=== PATIENT | female | born 2005 | race Caucasian/White ===

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

== ENCOUNTER → 2024-03-15 | Outpatient (CLI) | payer MEDICAID, SELFPAY ==
[2024-03-15 10:44] LABS: Absolute Neutrophil Count 4.3 X10^3/uL (2.0-7.7); Basophil# 0.06 X10^3/uL; Basophil% 0.6 % (0-1); Eosinophils% 2.1 % (0-5); Hematocrit 46.4 % (37-47); Hemoglobin 15.5 g/dL (12.0-15.0); Lymphocyte % 45.1 % (19-41); Mean Corp Hgb Conc 33.4 g/dL (32-36); Mean Corpuscular Hgb 29.3 pg (27.0-32.0); Mean Corpuscular Volume 87.7 fL (81-99); Monocyte# 0.69 X10^3/uL; Monocyte% 7.2 % (0-10); NRBC Flagged by Analyzer 0 % (0-5); Neutrophil # 4.26 X10^3/uL (2.7-7.7); Neutrophil % 44.7 % (47-70); Platelet Count 430 K/mm3 (150-450); RBC Distribution Width CV 12.2 % (11.6-14.6); RBC Distribution Width SD 39.1 fl (35.1-43.9); Red Blood Count 5.29 M/mm3 (4.2-5.4); White Blood Count 9.5 K/mm3 (4.4-11.0)
[2024-03-15 10:58] LABS: Internal QC Validated? YES +Cl - CLEAR BKGD
[2024-03-15 10:59] LABS: Pregnancy, Serum, hCG Quali. NEGATIVE Negative
[2024-03-15 11:07] LABS: ALB/GLOB Ratio 1.1 RATIO (0.9-2.4); AST(SGOT) 15 U/L (15-37); Alanine Aminotransfer ALT/SGPT 24 U/L (13-56); Albumin, Serum 4.1 g/dL (3.2-5.0); Alkaline Phosphatase 113 U/L (45-117); Anion Gap 5 (5-15); BUN 11 mg/dL (7-18); BUN/Creat Ratio 13.8 RATIO (10-20); Calcium,Total 9.5 mg/dL (8.5-10.1); Chloride 106 mmol/L (98-107); EST Glomerular Filtration Rate 98 mL/min (>60); Est Glom Filt Rate - Afr Amer 118 mL/min (>60); Globulin 3.8 g/dL (2.2-4.2); Glucose 85 mg/dL (74-106); Potassium 3.8 mmol/L (3.5-5.1); Protein, Total 7.9 g/dL (6.4-8.2); Sodium Level 140 mmol/L (136-145)
--- NOTE | 2024-03-16 16:15 | PCM.TILTTABL ---
Staff Staff: Caitie Moyer and Jackelyn Coburn Summary Pre Test Resting HR: 77 Pre Test Resting BP: 132/90 Minimum Test HR: 77 Maximum Test HR: 155 Minimum Test BP: 115/79 Maximum Test BP: 134/104 Physician Tilt Table Report Patient's Physicians Primary Care Physician: Carlos Manuel Jeong Indications/Diagnosis: Tachycardia Procedure Comments: Patient was brought into the lab in the postabsorptive nonsedated state. Initial EKG was obtained which demonstrated sinus rhythm with a heart rate of approximately 80 bpm and blood pressure 120/77 mmHg. The patient was then positioned in the 70 degree head at right tilt position and continuous EKG monitoring was performed. Patient started complaining of some dizziness with no significant change in heart rate and/or blood pressure. After approximately 20 minutes the peak heart rate was 120 bpm. The patient was then administered 0.4 mg of circular nitroglycerin after being put in the recumbent position. Patient was then put back in the 70 degree head upright tilt position and continuous EKG monitoring and blood pressure was monitored. No significant changes were noted. Summary: Negative head upright tilt table test.
[2024-03-16 16:20] VITALS: BP 115/79; BP 132/90; BP 134/104
== END | disposition home or self-care (01) ==
LOC: CVS 09:58
PROVIDERS: PCP Family Medicine; Referring Provider Internal Medicine Cardiovascular Disease; Visit Provider Internal Medicine Cardiovascular Disease
DX: R55 Syncope and collapse (principal); R00.2 Palpitations; R00.0 Tachycardia, unspecified
CPT/HCPCS: 36415; 80053; 84703; 85025; 93660; A4216

== ENCOUNTER 2024-11-27 20:22 | Emergency (ER) | payer MEDICAID, SELFPAY ==
[2024-11-27 20:23] VITALS: BP 127/88; PULSE 90; RESP 16; TEMP 36.2; O2SAT 98
[2024-11-27 20:30] VITALS: BMI 46.3
[2024-11-27 20:36] VITALS: BP 132/81; BP 133/79; BP 135/82; PULSE 105; PULSE 86; PULSE 95
--- NOTE | 2024-11-27 20:40 | ED.RN ---
Pt reports visual changes and dizziness with positional movements but no truncal ataxia noted. Pt was balanced while standing and visual changes resolved before completion of the assessment.
--- NOTE | 2024-11-27 21:25 | EKG12_ITS ---
Test Reason : DYSRHYTHMIA Blood Pressure : */* mmHG Vent. Rate : 80 BPM Atrial Rate : 80 BPM P-R Int : 162 ms QRS Dur : 86 ms QT Int : 372 ms P-R-T Axes : 28 26 28 degrees QTcB Int : 429 ms Normal sinus rhythm Normal ECG Confirmed by ARMANDO NORTON, ELAINE ([id number]), videotape editor JES BOYD ([id number]) on 11/28/2024 9:40:39 AM Referred By: Confirmed By: ELAINE ROBERTS MD
[2024-11-27 21:30] VITALS: BP 127/75; PULSE 80; RESP 18; O2SAT 100
--- NOTE | 2024-11-27 21:37 | EX.ED.DYSGE1 ---
HPI History of Present Illness Chief Complaint: Dizziness Informant: patient Narrative Narrative: Patient is a 19 year old female with history of POTS, Tushar-Danlos syndrome (hypermobile type) and bipolar disorder presented for evaluation of lightheadedness that she describes as a flare of her POTS. Patient states that she has a similar flareup every November when she goes back to school. She is a college [place] student. She notes she felt fatigued yesterday and tried to power through. Today she was feeling worse. As the day went on she got worse and at work she started to have feel lightheaded. She states in her mind she has trouble focusing in her head. She states she has blurry vision when she moves positions (goes up or down). She had nausea and 1 episode of vomiting. She states she feels very fatigued and has brain fog. She is also having increased joint pain. She states that she is on metoprolol at baseline. She tries to drink Electrolyte water and intermittently wears compression socks but is not wearing them today because sometimes they bother her legs. She denies any current chest pain but does relate she did have a little bit of chest tightness. She denies feeling short of breath. She denies any new swelling of her legs. Denies any history of DVT or PE. States she is not currently on her menstrual cycle. Denies any fever or chills. No other complaints at this time. [facility] Medical History POTS (postural orthostatic tachycardia syndrome) EDS (Tushar-Danlos syndrome) Tachycardia Chest pain Dyspnea Palpitations Acute hypokalemia Bipolar disorder Home Medications ?Medication ?Instructions ?Recorded ?Last Taken ?Type hydroxyzine HCl 25 mg tablet 25 mg PO TID PRN anxiety 01/18/24 Unknown History lamotrigine 100 mg tablet 100 mg PO QDAY 01/18/24 Unknown History metoprolol succinate 25 mg 25 mg PO DAILY 11/27/24 Unknown History tablet,extended release 24 hr Allergy/AdvReac Type Severity Reaction Status Date / Time acetaminophen (From [facility]) Allergy seizure Verified 11/27/24 20:26 pamabrom (From [facility]) Allergy seizure Verified 11/27/24 20:26 Family History Grandfather Afib Surgical History Hx of bilateral mastectomy Social History Smoking Status: Never smoker ROS ROS ED Constitutional Constitutional ED: Reports other Details: Fatigue. Lightheaded ; Denies chills or fever(s) Eyes Eyes: Reports blurry vision ENT ENT ED: Denies sore throat Cardiovascular Cardiovascular: Reports chest pain and palpitations Respiratory/Chest Respiratory/Chest: Denies cough Gastrointestinal Gastrointestinal: Reports nausea and vomiting; Denies abdominal pain or diarrhea Genitourinary Genitourinary ED: Denies dysuria or urinary frequency Musculoskeletal Musculoskeletal: Reports arthralgias and myalgias Integumentary Denies rash Neurologic Neurologic: Reports weakness and other; Denies paresthesias Psychiatric Psychiatric: Reports anxiety EXAM Physical Exam Const Vital Signs: 11/27/24 20:23 11/27/24 20:36 11/27/24 21:30 Temperature 97.2 F L Temperature Source Temporal Pulse Rate 90 80 Pulse Rate [Lying] 86 Pulse Rate [Sitting (for 1 minute prior to obtaining)] 95 Pulse Rate [Standing (for 1 minute prior to obtaining)] 105 H Respiratory Rate 16 18 Blood Pressure 127/88 H 127/75 H Blood Pressure [Lying] 135/82 H Blood Pressure [Sitting (for 1 minute prior to obtaining)] 132/81 H Blood Pressure [Standing (for 1 minute prior to obtaining)] 133/79 H Blood Pressure Mean 101 92 Blood Pressure Mean [Lying] 99 Blood Pressure Mean [Sitting (for 1 minute prior to obtaining)] 98 Blood Pressure Mean [Standing (for 1 minute prior to obtaining)] 97 Pulse Ox 98 100 Oxygen Delivery Method Room Air Room Air 11/28/24 00:00 Temperature Temperature Source Pulse Rate 86 Pulse Rate [Lying] Pulse Rate [Sitting (for 1 minute prior to obtaining)] Pulse Rate [Standing (for 1 minute prior to obtaining)] Respiratory Rate 18 Blood Pressure 135/67 H Blood Pressure [Lying] Blood Pressure [Sitting (for 1 minute prior to obtaining)] Blood Pressure [Standing (for 1 minute prior to obtaining)] Blood Pressure Mean 89 Blood Pressure Mean [Lying] Blood Pressure Mean [Sitting (for 1 minute prior to obtaining)] Blood Pressure Mean [Standing (for 1 minute prior to obtaining)] Pulse Ox 98 Oxygen Delivery Method Room Air Positive well nourished and well developed General Appearance ED: well developed and NAD HEENT Reports dry mucous membranes Mouth ED: Yes dry mucous membranes Mouth: dry mucous membranes Eyes PERRL Neck no lymphadenopathy, supple and no JVD Chest Wall inspection of chest normal and palpation of chest normal Resp normal respiratory effort and clear to auscultation bilaterally Cardio regular rate and regular rhythm GI normal to inspection, nondistended, normoactive bowel sounds and non-tender Extremity normal to inspection General Extremety ED: Negative for edema General Extremity: Negative for edema Neuro oriented x3 and CN's II-XII intact bilaterally Sensorium / Orientation: alert Motor Exam: Negative for general weakness Psych mental status grossly normal Skin no rashes or lesions noted MDM MDM MDM Narrative Medical decision making narrative: Patient is evaluated for worsening lightheadedness and fatigue. Feels like a exacerbation of her POTS. She is orthostatic negative with blood pressure but dizzy during this. Differential includes dehydration, electrolyte derangement, FERNANDO and infection as well as arrhythmia. Low suspicion for ACS. EKG does not show any acute ischemic changes I do not think she requires troponins or further cardiac workup. Vital signs are stable the emergency room. CBC shows a mild leukocytosis of 13.2 which is nonspecific. There is no left shift. CMP shows a mildly low bicarb of 19.9 but otherwise normal. Urine is negative. Urinalysis does show 50 ketones but otherwise consistent with contamination with 10-25 squamous epithelial cells and 0-5 white blood cells. She does have some blood but she is currently on her menstrual cycle. Patient admitted to the [facility] in the emergency room. Is given a small amount of IV fluids but then her IV started to bother her. States that she feels comfortable going home and is feeling better. Declines any nausea medication or prescriptions. Will follow-up with her primary care doctor. And at [facility]. Given return precautions. Discharged home in stable condition Lab Data Attestation: I reviewed the patient's lab results. Labs: Laboratory Results - last 24 hr 11/27/24 11/27/24 22:00 23:45 WBC 13.2 H RBC 4.73 Hgb 14.0 Hct 41.2 MCV 87.1 MCH 29.6 MCHC 34.0 RDW Std Deviation 37.8 RDW Coeff of Crystal 11.9 Plt Count 395 MPV 9.5 Immature Gran % (Auto) 0.400 Neut % (Auto) 52.0 Lymph % (Auto) 38.8 [place] % (Auto) 4.9 Eos % (Auto) 3.4 Baso % (Auto) 0.5 Absolute Neuts (auto) 6.9 Absolute Lymphs (auto) 5.11 H Nucleated RBC % 0 Sodium 138 Potassium 4.2 Chloride 103 Carbon Dioxide 19.9 L Anion Gap 15 BUN 18 Creatinine 0.65 L Estim Creat Clear Calc 178.41 Est GFR (MDRD) Non-Af 129 BUN/Creatinine Ratio 27.5 H Glucose 94 Calcium 9.6 Total Bilirubin < 0.15 AST 29 ALT 24 Alkaline Phosphatase 125 H Total Protein 7.6 Albumin 4.5 Globulin 3.1 Albumin/Globulin Ratio 1.4 Lipase 27 Serum , Qual NEGATIVE Urine Color Yellow Urine Clarity Clear Urine pH 6.0 Ur Specific [place] 1.020 Urine Protein 15 H Urine Glucose (UA) Normal Urine Ketones 50 H Urine Occult Blood 50 H Urine Nitrite Negative Urine Bilirubin Negative Urine Urobilinogen Normal Ur Leukocyte Esterase Negative Urine RBC 5-10 SEEN Urine WBC 0-5 SEEN Ur Squamous Epith Cells 10-25 SEEN Urine Bacteria 2+ Urine Mucus 2+ Rhythm Strip Rhythm Strip: Sinus Rhythm Rate: 80 Ectopy: None EKG Initial EKG: Attestation: I personally reviewed and interpreted this EKG as follows: Interpretation: Sinus Rhythm Comments: Normal sinus rhythm at a rate of 80 bpm Normal axis Normal intervals Normal ST segments Discharge Plan Triage Chief Complaint: Dizziness ED Provider: Margaret Patiño Dx/Rx/DC Orders Clinical Impression: Light-headed, Fatigue Instructions: ED Dizziness, Uncertain Cause Prescriptions: No Action lamotrigine 100 mg tablet 100 mg PO QDAY hydroxyzine HCl 25 mg tablet 25 mg PO TID PRN (Reason: anxiety) metoprolol succinate 25 mg tablet extended release 24 hr 25 mg PO DAILY Primary Care Provider: Carlos Manuel Jeong Referrals: Carlos Manuel Jeong MD [Primary Care Provider] - Activity Restrictions/Additional Instructions: Please continue to push fluids at home. You develop a fever or other infectious symptoms please return to the emergency room or call your family doctor. Print Language: Iraqi Disposition Disposition: Home, Self Care
[2024-11-27] MEDS: 0.9% Normal Saline (1000mL) 1,000 ML 1000 ML IV (22:01)
[2024-11-27 22:25] LABS: Hematocrit 41.2 % (37-47); Hemoglobin 14.0 g/dL (12.0-15.0); Immature Granulocytes Count 0.050 X10^3/uL (0.0-0.0); Mean Corp Hgb Conc 34.0 g/dL (32-36); Mean Corpuscular Volume 87.1 fL (81-99); Mean Platelet Vol. 9.5 fl (6.2-12.0); NRBC Flagged by Analyzer 0 % (0-5); POSITIVE COUNT YES; POSITIVE DIFFERENTIAL YES; Platelet Count 395 K/mm3 (150-450); RBC Distribution Width CV 11.9 % (11.6-14.6); RBC Distribution Width SD 37.8 fl (35.1-43.9); Red Blood Count 4.73 M/mm3 (4.2-5.4); White Blood Count 13.2 K/mm3 (4.4-11.0)
[2024-11-27 22:52] LABS: Internal QC Validated? YES +Cl - CLEAR BKGD; Pregnancy, Serum, hCG Quali. NEGATIVE Negative; Record Kit Lot#, Serum Preg. 962302
[2024-11-27 22:56] LABS: Lipase 27 U/L (13-75)
[2024-11-27 23:34] LABS: AST(SGOT) 29 U/L (<=31); Alanine Aminotransfer ALT/SGPT 24 U/L (<=34); Albumin, Serum 4.5 g/dL (3.5-5.0); Alkaline Phosphatase 125 U/L (35-104); Anion Gap 15 (5-15); BUN 18 mg/dL (4-19); BUN/Creat Ratio 27.5 RATIO (10-20); Calcium,Total 9.6 mg/dL (7.6-11.0); Carbon Dioxide 19.9 mmol/L (21.0-32.0); Chloride 103 mmol/L (98-108); Estimated Creatinine Clearance 178.41 ml/min (50-250); Globulin 3.1 g/dL (2.2-4.2); Glucose 94 mg/dL (70-99); Potassium 4.2 mmol/L (3.3-5.1)
[2024-11-28] VITALS: BP 135/67; PULSE 86; RESP 18; O2SAT 98
[2024-11-28 00:36] LABS: Color, Urine Yellow (Yellow); Glucose, Dipstick Normal (Normal); Ketone-Dipstick 50 mg/dl (Negative); Leukocyte Esterase-Dipstick Negative /ul (Negative); Nitrite-Dipstick Negative (Negative); Occult Blood-Urine 50 /ul (Negative); Protein-Dipstick 15 mg/dl (Negative); Specific Gravity, Urine 1.020 (1.002-1.030); Urine Bilirubin Dipstick Negative (Negative)
[2024-11-28 00:58] LABS: Mucous, Urine 2+ /hpf (<or=2+); Red Blood Cells-Urine 5-10 SEEN /hpf (0-5); Squamous Epithelial Cells - UA 10-25 SEEN /hpf (5-10)
[2024-11-28 01:16] VITALS: BP 154/82; PULSE 88; RESP 18; TEMP 36.6; O2SAT 100
== END 2024-11-28 01:18 | disposition home or self-care (01) ==
PROVIDERS: Emergency Provider Emergency Medicine; PCP Family Medicine; Visit Provider Emergency Medicine
DX: R42 Dizziness and giddiness (principal); F31.9 Bipolar disorder, unspecified; G90.A Postural orthostatic tachycardia syndrome [POTS]; Q79.60 Ehlers-Danlos syndrome, unspecified; Z79.899 Other long term (current) drug therapy; R07.9 Chest pain, unspecified; R00.2 Palpitations; R53.83 Other fatigue
CPT/HCPCS: 80053; 81001; 83690; 84703; 85025; 93005; 96361; 96374; 99283; A4216; J2405

== ENCOUNTER 2024-12-19 12:44 | Emergency (ER) | payer MEDICAID, SELFPAY ==
[2024-12-19 12:44] VITALS: BP 138/91; PULSE 89; RESP 17; TEMP 35.9; O2SAT 100
[2024-12-19 15:29] VITALS: BP 121/65; PULSE 72; RESP 16; O2SAT 99; BMI 47.2
[2024-12-19 15:31] VITALS: BP 121/65; BP 128/69; BP 153/108; PULSE 72; PULSE 75; PULSE 96
--- NOTE | 2024-12-19 15:52 | EX.ED.DYSGE1 ---
HPI History of Present Illness Chief Complaint: Dizziness Detail of Chief Complaint: Dizziness Informant: patient Narrative Narrative: Patient presents with dizziness that started while in class today. She felt like she was nodding off and so she stood up to stretch and felt like everything was moving around and round. No prior history of vertigo. Denies recent illness. Denies significant headache. Gets occasional headache and occasional migraines. She describes some blurred vision. She is chest pain or abdominal pain. Denies neck pain. PFSH PFSH Medical History POTS (postural orthostatic tachycardia syndrome) EDS (Tushar-Danlos syndrome) Tachycardia Chest pain Dyspnea Palpitations Acute hypokalemia Bipolar disorder Home Medications ?Medication ?Instructions ?Recorded ?Last Taken ?Type hydroxyzine HCl 25 mg tablet 25 mg PO TID PRN anxiety 01/18/24 Unknown History lamotrigine 100 mg tablet 100 mg PO QDAY 01/18/24 Unknown History metoprolol succinate 25 mg 25 mg PO DAILY 11/27/24 Unknown History tablet,extended release 24 hr meclizine 25 mg tablet 25 mg PO TID PRN dizziness #20 tabs 12/19/24 Unknown Rx Allergy/AdvReac Type Severity Reaction Status Date / Time acetaminophen (From [facility]) Allergy seizure Verified 11/27/24 20:26 pamabrom (From [facility]) Allergy seizure Verified 11/27/24 20:26 Family History Grandfather Afib Surgical History Hx of bilateral mastectomy Social History Smoking Status: Never smoker ROS ROS ED Review of Systems ROS Unobtainable: other Constitutional Constitutional ED: Reports lethargy; Denies chills, fever(s), sweats or weight loss Eyes Eyes: Denies blurry vision, change in vision or diplopia ENT ENT ED: Denies rhinorrhea or sore throat Cardiovascular Cardiovascular: Denies chest pain, orthopnea or racing heartbeat Respiratory/Chest Respiratory/Chest: Denies cough, dyspnea, dyspnea on exertion, orthopnea or sputum Gastrointestinal Gastrointestinal: Denies abdominal pain, diarrhea, nausea or vomiting Genitourinary Genitourinary ED: Denies dysuria, hematuria or urinary frequency Musculoskeletal Musculoskeletal: Denies arthralgias, back pain, myalgias or neck pain Integumentary Denies abscess, Abrasions or rash Neurologic Neurologic: Reports other Details: Dizziness ; Denies headache(s) or weakness Psychiatric Psychiatric: Denies anxiety, depression or suicidal thoughts Endocrine Endocrinology: Denies polydipsia, polyphagia or polyuria Hematologic/Lymphatic Hematologic/Lymphatic: Denies easy bleeding, easy bruising or lymphadenopathy Allergic/Immunologic Allergic/Immunologic ED: Denies mouth swelling, tongue swelling or urticaria EXAM Physical Exam Const Vital Signs: 12/19/24 12:44 12/19/24 15:29 12/19/24 15:31 Temperature 96.6 F L Temperature Source Temporal Pulse Rate 89 72 Pulse Rate [Lying] 72 Pulse Rate [Sitting (for 1 minute prior to obtaining)] 75 Pulse Rate [Standing (for 1 minute prior to obtaining)] 96 Respiratory Rate 17 16 Blood Pressure 138/91 H 121/65 H Blood Pressure [Lying] 121/65 H Blood Pressure [Sitting (for 1 minute prior to obtaining)] 128/69 H Blood Pressure [Standing (for 1 minute prior to obtaining)] 153/108 H Blood Pressure Mean 106 83 Blood Pressure Mean [Lying] 83 Blood Pressure Mean [Sitting (for 1 minute prior to obtaining)] 88 Blood Pressure Mean [Standing (for 1 minute prior to obtaining)] 123 Pulse Ox 100 99 Oxygen Delivery Method Room Air Room Air Positive well nourished and well developed General Appearance ED: well developed and NAD HEENT Reports TM's clear and moist mucous membranes normocephalic and atraumatic; Negative for trauma or tenderness Tympanic Membrane ED: Yes TM's clear Eyes PERRL and EOMs intact bilaterally General Eye ED: Negative for pale conjunctiva or scleral icterus Neck no lymphadenopathy, supple and no JVD General: Negative for tenderness Chest Wall inspection of chest normal and palpation of chest normal Chest: Negative for tenderness Resp normal respiratory effort and clear to auscultation bilaterally Effort and Inspection: Negative for respiratory distress or pain with movement Auscultation: Negative for rhonchi, wheezes or diminished lung sounds Cardio regular rate, regular rhythm, S1 normal heart sound, S2 normal heart sound and no murmurs Peripheral Pulses: pulses 2+ throughout GI normal to inspection, nondistended, normoactive bowel sounds, soft to palpation, non-tender, non-distended and no masses Back/Spine no CVA tenderness and no thoracic nor lumbar tenderness Extremity normal to inspection General Extremety ED: Negative for edema General Extremity: Negative for edema Neuro oriented x3, CN's II-XII intact bilaterally, no sensory deficits noted and gait normal Neuro Narrative: Finger-nose and heel finch testing within normal limits, negative Romberg, negative for drift, fundi benign Hallpike maneuver performed there was no significant nystagmus noted. Hard to reproduce her symptoms Sensorium / Orientation: awake, alert, oriented to person, oriented to place and oriented to time Motor Exam: strength 5/5 throughout and strength abnormal Psych mental status grossly normal Skin no rashes or lesions noted and no wounds MDM MDM MDM Narrative Medical decision making narrative: Patient planes of dizziness and spinning sensation. No prior episodes. Clinically looks well. Neuroexam normal. Orthostatic vital signs were negative. Will obtain some basic labs and treat with Antivert. CBC with differential obtained showed a slightly elevated white count at 13.0 with hemoglobin 13.3 and platelet count of 390. Chemistries unremarkable. Patient was medicated with Antivert and felt improved after treatment. At this time we will discharge to home as I suspect possibly benign positional vertigo as the etiology of her symptoms. Lab Data Attestation: I reviewed the patient's lab results. Labs: Laboratory Results - last 24 hr 12/19/24 16:09 WBC 13.0 H RBC 4.56 Hgb 13.3 Hct 39.6 MCV 86.8 MCH 29.2 MCHC 33.6 RDW Std Deviation 39.8 RDW Coeff of [place] 12.6 Plt Count 390 MPV 8.6 Immature Gran % (Auto) 0.400 Neut % (Auto) 53.4 Lymph % (Auto) 32.2 [place] % (Auto) 8.4 Eos % (Auto) 5.1 H Baso % (Auto) 0.5 Absolute Neuts (auto) 7.0 Absolute Lymphs (auto) 4.20 Nucleated RBC % 0 Sodium 138 Potassium 4.2 Chloride 106 Carbon Dioxide 21.2 Anion Gap 10 BUN 13 Creatinine 0.65 L Estim Creat Clear Calc 180.24 Est GFR (MDRD) Non-Af 129 BUN/Creatinine Ratio 19.8 Glucose 85 Calcium 9.5 Discharge Plan Triage Chief Complaint: Dizziness ED Provider: Frankie Eastman Dx/Rx/DC Orders Clinical Impression: Dizziness Instructions: ED BPV Vertigo, ED Dizziness, Uncertain Cause Prescriptions: New meclizine 25 mg tablet 25 mg PO TID PRN (Reason: dizziness) Qty: 20 0RF No Action lamotrigine 100 mg tablet 100 mg PO QDAY hydroxyzine HCl 25 mg tablet 25 mg PO TID PRN (Reason: anxiety) metoprolol succinate 25 mg tablet extended release 24 hr 25 mg PO DAILY Primary Care Provider: Carlos Manuel Jeong Referrals: Carlos Manuel Jeong MD [Primary Care Provider] - 5-7 Days Print Language: Algerian Disposition Disposition: Home, Self Care
[2024-12-19 16:23] LABS: Hematocrit 39.6 % (37-47); Hemoglobin 13.3 g/dL (12.0-15.0); Immature Granulocytes Count 0.050 X10^3/uL (0.0-0.0); Mean Corp Hgb Conc 33.6 g/dL (32-36); Mean Corpuscular Volume 86.8 fL (81-99); Mean Platelet Vol. 8.6 fl (6.2-12.0); NRBC Flagged by Analyzer 0 % (0-5); Platelet Count 390 K/mm3 (150-450); RBC Distribution Width CV 12.6 % (11.6-14.6); RBC Distribution Width SD 39.8 fl (35.1-43.9); Red Blood Count 4.56 M/mm3 (4.2-5.4); White Blood Count 13.0 K/mm3 (4.4-11.0)
[2024-12-19 16:58] LABS: Anion Gap 10 (5-15); BUN 13 mg/dL (4-19); BUN/Creat Ratio 19.8 RATIO (10-20); Calcium,Total 9.5 mg/dL (7.6-11.0); Carbon Dioxide 21.2 mmol/L (21.0-32.0); Chloride 106 mmol/L (98-108); Estimated Creatinine Clearance 180.24 ml/min (50-250); Glucose 85 mg/dL (70-99); Potassium 4.2 mmol/L (3.3-5.1)
[2024-12-19 17:00] VITALS: BP 132/72; PULSE 84; RESP 16; O2SAT 97
[2024-12-19 17:22] VITALS: BP 113/74; PULSE 78; RESP 18; TEMP 36.6; O2SAT 100
== END 2024-12-19 17:23 | disposition home or self-care (01) ==
PROVIDERS: Emergency Provider Emergency Medicine; PCP Family Medicine; Visit Provider Emergency Medicine
DX: R42 Dizziness and giddiness (principal); Q79.60 Ehlers-Danlos syndrome, unspecified; Z90.13 Acquired absence of bilateral breasts and nipples
CPT/HCPCS: 80048; 85025; 99283

== ENCOUNTER 2025-01-02 16:07 | Emergency (ER) | payer MEDICAID, SELFPAY ==
[2025-01-02 16:08] VITALS: BP 131/90; PULSE 98; RESP 17; TEMP 36.1; O2SAT 96; BMI 46.0
--- NOTE | 2025-01-02 16:32 | RAD_ITS ---
EXAM: XR Right Knee Complete, 4 or More Views CLINICAL INDICATION: PAIN TECHNIQUE: Four or more views of the right knee. COMPARISON: No relevant prior studies available. FINDINGS: BONES/JOINTS: Unremarkable. No acute fracture. No dislocation. SOFT TISSUES: Unremarkable. RAD/Knee 4 or More Views IMPRESSION: No acute fracture. Reading Location: [id number]
--- NOTE | 2025-01-02 16:32 | RAD_ITS ---
EXAM: XR Right Tibia and Fibula, 2 Views CLINICAL INDICATION: PAIN TECHNIQUE: Frontal and lateral views of the right tibia and fibula. COMPARISON: No relevant prior studies available. FINDINGS: BONES/JOINTS: See below. SOFT TISSUES: Soft tissue swelling without acute fracture. No radiopaque foreign body. RAD/Tibia & Fibula 2 Views IMPRESSION: 1. Soft tissue swelling without acute fracture. 2. If symptoms persist, further evaluation with CT is recommended. Reading Location: [id number]
--- NOTE | 2025-01-02 17:29 | EDS_ITS ---
HPI History of Present Illness HPI Narrative: 19-year-old female complaining of right calf pain for approximately a week. Denies any fall injury or trauma does do something called [employer] dance where she does a lot activity with her legs. She thinks she injured her calf during that. No history of DVT or PE. No recent travel, surgery or immobilization. No chest pain or shortness of breath. Hurts more to walk on. Chief Complaint: Lower Extremity Injury Informant: patient Occured/Mechanism Mechanism/Context: Yes injury Onset/Context/Timing Onset: Days Context: Sudden Onset Timing: Continuous Quality of Pain: Dull and Aching Current Severity: Mild Maximum Severity: Mild Associated Symptoms Associated Symptoms: Negative for Parasthesia, Weakness or Loss of Funtion Narrative Narrative: 19-year-old female thinks she injured her right lower leg while dancing. Prior similar symptoms: No Recent Illness/Hospitalization: No PFSH PFSH Medical History POTS (postural orthostatic tachycardia syndrome) EDS (Tushar-Danlos syndrome) Tachycardia Chest pain Dyspnea Palpitations Acute hypokalemia Bipolar disorder Home Medications ?Medication ?Instructions ?Recorded ?Last Taken ?Type hydroxyzine HCl 25 mg tablet 25 mg PO TID PRN anxiety 01/18/24 Unknown History lamotrigine 100 mg tablet 100 mg PO QDAY 01/18/24 Unkn own History metoprolol succinate 25 mg 25 mg PO DAILY 11/27/24 Unk nown History tablet,extended release 24 hr meclizine 25 mg tablet 25 mg PO TID PRN dizziness # 20 tabs 12/19/24 Unknown Rx Allergy/AdvReac Type Severity Reaction Status Date / Time acetaminophen (From [facility]) Allergy seizure Verified 01/02/25 16:10 pamabrom (From [facility]) Allergy seizure Verified 01/02/25 16:10 Family History Grandfather Afib Surgical History Hx of bilateral mastectomy Social History Smoking Status: Never smoker ROS ROS ED ROS Narrative Denies recent illness. Constitutional Constitutional ED: Denies chills or fever(s) Eyes Eyes: Denies blurry vision ENT ENT ED: Denies ear pain Cardiovascular Cardiovascular: Denies chest pain Respiratory/Chest Respiratory/Chest: Denies cough or dyspnea Gastrointestinal Gastrointestinal: Denies abdominal pain Genitourinary Genitourinary ED: Denies dysuria or hematuria Musculoskeletal Musculoskeletal: Denies arthralgias or back pain Integumentary Denies abscess Neurologic Neurologic: Denies headache(s) Psychiatric Psychiatric: Denies anxiety or depression Endocrine Endocrinology: Denies polydipsia Hematologic/Lymphatic Hematologic/Lymphatic: Denies easy bleeding Allergic/Immunologic Allergic/Immunologic ED: Denies mouth swelling or tongue swelling EXAM Physical Exam Narrative Exam Narrative: Well-appearing 19-year-old female sitting upright in chair in the hallway. Vital signs are stable afebrile. H EENT exam pupils round reactive light. Moist mutes membranes. Neck nontender no lymphadenopathy. Back nontender. Lungs clear to auscultation bilaterally. Heart regular rhythm rate about 90 no murmur. Chest wall ribs nontender. Abdomen is soft nontender. Moving all 4 extremities. Normal strength. Normal range of motion. No edema no swelling. Mild right lateral calf tenderness. No cord. No edema. No swelling. No redness. Mildly tender. Full flexion extension of the right hip, knee and ankle. Normal DP pulse. Normal dorsi plantarflexion. There is no discoloration to the skin. There is no lymphangitic streaking. There is no inguinal lymphadenopathy. Normal in appearance. Normal strength and sensation. Const Vital Signs: 01/02/25 16:08 Temperature 97 F L Temperature Source Temporal Pulse Rate 98 Respiratory Rate 17 Blood Pressure 131/90 H Blood Pressure Mean 103 Pulse Ox 96 Oxygen Delivery Method Room Air Positive well developed; Negative for cachectic, contractures or unkempt General Appearance ED: well developed and NAD; Negative for unkempt, cachectic or contractures Nutritional Appearance: Negative for cachectic HEENT Reports moist mucous membranes normocephalic and atraumatic Eyes PERRL Neck full ROM and supple Chest Wall inspection of chest normal and palpation of chest normal Resp normal respiratory effort, no retractions and clear to auscultation bilaterally Cardio regular rate, regular rhythm, S1 normal heart sound, S2 normal heart sound and no murmurs GI non-tender Auscultation: normoactive bowel sounds Palpation: soft; Negative for tender, guarding or rebound tenderness present Back/Spine no CVA tenderness General Back: Negative for CVA tenderness Cervical Spine: Negative for cervical spine tenderness Thoracic Spine / Upper Back: Negative for thoracic spinal tenderness Lumbar Spine / Lower Back: Negative for lumbar spinal tenderness Extremity full ROM; Negative for normal to inspection Extremity Narrative: Mild tenderness right medial calf. No redness. No swelling. No signs of trauma. No soft tissue deficit. Normal flexion extension of the right hip, right knee and right foot. Normal DP pulse. Normal dorsi plantarflexion. Normal sensation to the foot. Normal strength. No cord. No edema. General Extremety ED: Negative for edema General Extremity: Negative for edema Neuro oriented x3 and CN's II-XII intact bilaterally Sensorium / Orientation: alert, oriented to person and oriented to place; Negative for orientation impaired Motor Exam: strength 5/5 throughout Psych mental status grossly normal Appearance: Negative for unkempt Skin no wounds Lesions: no lesions Rashes: no rashes Trauma: Negative for abrasion, laceration or puncture MDM MDM MDM Narrative Medical decision making narrative: 19-year-old female right calf strain from dancing. No signs of infection. No history or risk factor for DVT or PE. No cord no edema. X-rays were obtained in triage which showed no fracture or dislocation. This would be treated as a muscle strain. Ice. Anti-inflammatories rest if not improving return or follow-up. Patient's comfortable with the plan. Radiography Diagnostic Testing: Clinical Impression(s) from Imaging Studies Knee X-Ray 01/02/25 16:32 IMPRESSION: No acute fracture. Reading Location: [facility] Tibia/Fibula X-Ray 01/02/25 16:32 IMPRESSION: 1. Soft tissue swelling without acute fracture. 2. If symptoms persist, further evaluation with CT is recommended. Reading Location: [facility] Right knee x-ray, 4 views, interpreted by me by myself and the radiologist shows no acute abnormality. Right tib-fib x-ray, 3 views, interpreted by myself and the radiologist shows no acute fracture or dislocation. Discharge Plan Triage Chief Complaint: Lower Extremity Injury ED Provider: Mik Santiago Dx/Rx/DC Orders Prescriptions: No Action lamotrigine 100 mg tablet 100 mg PO QDAY hydroxyzine HCl 25 mg tablet 25 mg PO TID PRN (Reason: anxiety) metoprolol succinate 25 mg tablet extended release 24 hr 25 mg PO DAILY meclizine 25 mg tablet 25 mg PO TID PRN (Reason: dizziness) Qty: 20 0RF Primary Care Provider: Carlos Manuel Jeong Referrals: Carlos Manuel Jeong MD [Primary Care Provider, Family Practice] Print Language: Maori
[2025-01-02 17:57] VITALS: BP 140/86; PULSE 97; RESP 18; TEMP 36.2; O2SAT 100
== END 2025-01-02 17:58 | disposition home or self-care (01) ==
PROVIDERS: Emergency Provider Emergency Medicine; PCP Family Medicine; Visit Provider Emergency Medicine
DX: S86.911A Strain of unspecified muscle(s) and tendon(s) at lower leg level, right leg, initial encounter (principal); M79.661 Pain in right lower leg; Z90.13 Acquired absence of bilateral breasts and nipples; X58.XXXA Exposure to other specified factors, initial encounter; Y93.41 Activity, dancing
CPT/HCPCS: 73564; 73590; 99282